=== PATIENT | male | born 1990 | race Two or more races ===

== ENCOUNTER 2023-10-25 10:56 | Inpatient (IN) | payer SELFPAY ==
[~2023-10-25] VITALS: Ht 172.7 cm; Wt 77.1 kg
[2023-10-25 11:39] LABS: CALCIUM, SERUM 7.7 mg/dL (8.5-10.1); CREATININE 0.8 mg/dL (0.6-1.3); POTASSIUM 3.9 mmol/L (3.5-5.1)
[2023-10-25 11:43] LABS: INR 1.79 (0.91-1.10); PARTIAL THROMBOPLASTIN TIME 31.8 SEC (24.3-34.3); PROTHROMBIN TIME 17.9 SECS (9.2-11.1)
[2023-10-25 11:44] LABS: BILIRUBIN,DIRECT 1.3 mg/dL (0.0-0.2); BILIRUBIN,TOTAL 2.7 mg/dL (0.2-1.0); TOTAL PROTEIN, SERUM 5.9 g/dL (6.4-8.2)
[2023-10-25 11:45] LABS: BASOPHILS % (AUTO) 0.2 % (0.0-2.0); EOSINOPHILS # (AUTO) 0.1 K/uL (0.0-0.7); HEMATOCRIT 32 % (39-51); HEMOGLOBIN 10.9 g/dL (13.5-17.5); LYMPHOCYTES # (AUTO) 0.5 K/uL (0.8-4.8); MEAN CORPUSCULAR HEMOGLOBIN 26 PG (26.0-33.0); MEAN CORPUSCULAR HGB CONC 34 g/dl (31.0-36.0); MEAN CORPUSCULAR VOLUME 77 fL (80-96); MONOCYTES # (AUTO) 0.3 K/uL (0.1-1.30); MONOCYTES % (AUTO) 13.2 % (2.0-12.0); NEUTROPHILS # (AUTO) 1.3 K/uL (1.8-8.9); NEUTROPHILS % (AUTO) 59.6 % (43.0-81.0); RED BLOOD CELL COUNT(AUTO) 4.21 MIL/uL (4.5-6.0); RED CELL DISTRIBUTION WIDTH 21.3 % (11.5-15.0); WHITE BLOOD COUNT (AUTO) 2.2 K/uL (4.3-11.0)
[2023-10-25 12:06] LABS: PLATELET COUNT (AUTO) 22 K/uL (150-450)
[2023-10-25] MEDS ORDERED: ALBUMIN 25% 12.5 GM/50 ML BOTTLE IV STA (12:35)
[2023-10-25] MEDS: ALBUMIN 25% 25 GM in PREMIX 1 EA IV STA (12:55)
[2023-10-25] MEDS ORDERED: ALBUMIN 25% 25 GM in PREMIX 1 EA IV ONE (13:00)
[2023-10-25] MEDS: LACTULOSE 10 G/15 ML UDC (PYXIS) PO ONE (13:00)
[2023-10-25] MEDS ORDERED: ALBUMIN 5% 25 GM in PREMIX 1 EA IV ONE (13:00)
[2023-10-25] MEDS ORDERED: ALBUMIN 25% 12.5 GM/50 ML BOTTLE IV ONE (13:00)
[2023-10-25] MEDS ORDERED: LACTULOSE 10 G/15 ML UDC (PYXIS) ONE ×2 (13:19→19:46)
[2023-10-25] MEDS: CEFTRIAXONE 2 G in IV D5W 100 ML IV SCH (15:00)
[2023-10-25] MEDS ORDERED: MAGNESIUM HYDROXIDE 30 ML UDC PO PRN (18:00)
[2023-10-25] MEDS ORDERED: Z GUARD REMEDY 4 OZ OINT TP PRN (18:00)
[2023-10-25] MEDS ORDERED: ONDANSETRON HCL/PF 4 MG/2 ML VIAL IVP PRN (18:00)
[2023-10-25] MEDS ORDERED: HYDROCODONE/APAP 5/325MG TABLET PO PRN (18:00)
[2023-10-25] MEDS ORDERED: PHYTONADIONE INJ 10 MG/1 ML AMPUL ONE (19:46)
[2023-10-25] MEDS: PHYTONADIONE INJ 10 MG/1 ML AMPUL SQ ONE (19:52)
[2023-10-25] MEDS: LACTULOSE 10 G/15 ML UDC (PYXIS) PO SCH (19:52)
[2023-10-25 21:31] LABS: ANISOCYTOSIS 1+; EOSINOPHILS % (MANUAL) 7 % (0-4); LYMPHOCYTES % (MANUAL) 26 % (16-48); MONOCYTES % (MANUAL) 11 % (0-11.0); NEUTROPHILS % (MANUAL) 56 (42-76); OVALOCYTES 1+; PLATELET ESTIMATE DECREASED; TARGET CELLS 1+
[2023-10-26] VITALS (12 sets, daily range): BP systolic 119–134; BP diastolic 74–85; TEMP 97.5–98.2; O2SAT 100
[2023-10-26] MEDS ORDERED: PHYTONADIONE 5 MG TABLET PO ONE (07:00)
[2023-10-26 07:17] LABS: BASOPHILS % (AUTO) 0.2 % (0.0-2.0); EOSINOPHILS # (AUTO) 0.1 K/uL (0.0-0.7); EOSINOPHILS % (AUTO) 6.7 % (0.0-6.0); HEMATOCRIT 30 % (39-51); HEMOGLOBIN 10.1 g/dL (13.5-17.5); LYMPHOCYTES # (AUTO) 0.2 K/uL (0.8-4.8); LYMPHOCYTES % (AUTO) 16.8 % (20.0-44.0); MEAN CORPUSCULAR HEMOGLOBIN 26 PG (26.0-33.0); MEAN CORPUSCULAR HGB CONC 34 g/dl (31.0-36.0); MEAN CORPUSCULAR VOLUME 77 fL (80-96); MONOCYTES # (AUTO) 0.2 K/uL (0.1-1.30); MONOCYTES % (AUTO) 15.8 % (2.0-12.0); NEUTROPHILS # (AUTO) 0.9 K/uL (1.8-8.9); NEUTROPHILS % (AUTO) 60.5 % (43.0-81.0); RED BLOOD CELL COUNT(AUTO) 3.85 MIL/uL (4.5-6.0); RED CELL DISTRIBUTION WIDTH 21.9 % (11.5-15.0)
[2023-10-26 07:27] LABS: INR 1.78 (0.91-1.10); PROTHROMBIN TIME 18.2 SECS (9.2-11.1)
[2023-10-26 07:28] LABS: PLATELET COUNT (AUTO) 19 K/uL (150-450); WHITE BLOOD COUNT (AUTO) 1.4 K/uL (4.3-11.0)
[2023-10-26] MEDS: PANTOPRAZOLE 40 MG TABLET.DR PO SCH (08:02)
[2023-10-26 08:03] LABS: CALCIUM, SERUM 7.8 mg/dL (8.5-10.1); CREATININE 0.7 mg/dL (0.6-1.3); PHOSPHORUS 3.2 mg/dL (2.5-4.9); POTASSIUM 3.6 mmol/L (3.5-5.1)
[2023-10-26 08:18] LABS: BASOPHILS % (MANUAL) 0 % (0.0-2.0); EOSINOPHILS % (MANUAL) 6 % (0-4); LYMPHOCYTES % (MANUAL) 14 % (16-48); MONOCYTES % (MANUAL) 15 % (0-11.0); NEUTROPHILS % (MANUAL) 65 (42-76)
[2023-10-26 08:19] LABS: ANISOCYTOSIS 1+; PLATELET ESTIMATE DECREASED
[2023-10-26] MEDS: SPIRONOLACTONE 25 MG TABLET PO SCH (08:29)
[2023-10-26] MEDS: FUROSEMIDE 40 MG TABLET PO SCH (08:30)
[2023-10-26 09:03] LABS: THYROID STIMULATING HORMONE 2.05 uIU/mL (0.358-3.74)
[2023-10-26] MEDS: ACETAMINOPHEN 325 MG TABLET PO PRN (17:35)
[2023-10-27 07:30] VITALS: BP 126/82; TEMP 98.2; O2SAT 100
[2023-10-27 08:04] LABS: BASOPHILS % (AUTO) 0.3 % (0.0-2.0); EOSINOPHILS # (AUTO) 0.1 K/uL (0.0-0.7); EOSINOPHILS % (AUTO) 7.1 % (0.0-6.0); HEMATOCRIT 32 % (39-51); HEMOGLOBIN 10.7 g/dL (13.5-17.5); LYMPHOCYTES # (AUTO) 0.3 K/uL (0.8-4.8); LYMPHOCYTES % (AUTO) 23.9 % (20.0-44.0); MEAN CORPUSCULAR HEMOGLOBIN 26 PG (26.0-33.0); MEAN CORPUSCULAR HGB CONC 34 g/dl (31.0-36.0); MEAN CORPUSCULAR VOLUME 78 fL (80-96); MONOCYTES # (AUTO) 0.2 K/uL (0.1-1.30); MONOCYTES % (AUTO) 16.2 % (2.0-12.0); NEUTROPHILS # (AUTO) 0.7 K/uL (1.8-8.9); NEUTROPHILS % (AUTO) 52.5 % (43.0-81.0); RED BLOOD CELL COUNT(AUTO) 4.09 MIL/uL (4.5-6.0); RED CELL DISTRIBUTION WIDTH 21.9 % (11.5-15.0)
[2023-10-27 08:32] LABS: BILIRUBIN,TOTAL 2.3 mg/dL (0.2-1.0); CALCIUM, SERUM 7.8 mg/dL (8.5-10.1); CREATININE 0.7 mg/dL (0.6-1.3); MAGNESIUM 2.1 mg/dL (1.8-2.4); POTASSIUM 3.9 mmol/L (3.5-5.1); TOTAL PROTEIN, SERUM 5.9 g/dL (6.4-8.2)
[2023-10-27 09:30] LABS: PLATELET COUNT (AUTO) 17 K/uL (150-450); WHITE BLOOD COUNT (AUTO) 1.4 K/uL (4.3-11.0)
[2023-10-27 11:15] LABS: ANISOCYTOSIS 1+; BASOPHILS % (MANUAL) 0 % (0.0-2.0); EOSINOPHILS % (MANUAL) 6 % (0-4); HYPOCHROMASIA 1+; LYMPHOCYTES % (MANUAL) 20 % (16-48); MONOCYTES % (MANUAL) 14 % (0-11.0); NEUTROPHILS % (MANUAL) 60 (42-76); OVALOCYTES 1+; PLATELET ESTIMATE DECREASED
[2023-10-27 16:00] VITALS: BP 122/71; TEMP 98.1; O2SAT 100
[2023-10-27 20:00] VITALS: BP 116/79; TEMP 98.1; O2SAT 100
[2023-10-28] VITALS (9 sets, daily range): BP systolic 104–131; BP diastolic 58–86; TEMP 97.8–98.6; O2SAT 99–100
[2023-10-28 07:55] LABS: BASOPHILS % (AUTO) 0.2 % (0.0-2.0); EOSINOPHILS # (AUTO) 0.1 K/uL (0.0-0.7); EOSINOPHILS % (AUTO) 6.6 % (0.0-6.0); HEMATOCRIT 30 % (39-51); HEMOGLOBIN 10.3 g/dL (13.5-17.5); LYMPHOCYTES # (AUTO) 0.3 K/uL (0.8-4.8); LYMPHOCYTES % (AUTO) 20.3 % (20.0-44.0); MEAN CORPUSCULAR HEMOGLOBIN 27 PG (26.0-33.0); MEAN CORPUSCULAR HGB CONC 34 g/dl (31.0-36.0); MEAN CORPUSCULAR VOLUME 78 fL (80-96); MONOCYTES # (AUTO) 0.2 K/uL (0.1-1.30); NEUTROPHILS # (AUTO) 0.7 K/uL (1.8-8.9); NEUTROPHILS % (AUTO) 54.9 % (43.0-81.0); RED BLOOD CELL COUNT(AUTO) 3.85 MIL/uL (4.5-6.0); RED CELL DISTRIBUTION WIDTH 21.5 % (11.5-15.0)
[2023-10-28 08:02] LABS: PLATELET COUNT (AUTO) 21 K/uL (150-450); WHITE BLOOD COUNT (AUTO) 1.4 K/uL (4.3-11.0)
[2023-10-28 08:11] LABS: CALCIUM, SERUM 7.8 mg/dL (8.5-10.1); CREATININE 0.6 mg/dL (0.6-1.3); MAGNESIUM 1.9 mg/dL (1.8-2.4); PHOSPHORUS 3.7 mg/dL (2.5-4.9); POTASSIUM 3.9 mmol/L (3.5-5.1)
[2023-10-28 09:18] LABS: BILIRUBIN,DIRECT 1.2 mg/dL (0.0-0.2); BILIRUBIN,TOTAL 2.3 mg/dL (0.2-1.0); TOTAL PROTEIN, SERUM 5.8 g/dL (6.4-8.2)
[2023-10-28 13:52] LABS: EOSINOPHILS % (MANUAL) 2 % (0-4); LYMPHOCYTES % (MANUAL) 26 % (16-48); MONOCYTES % (MANUAL) 16 % (0-11.0); NEUTROPHILS % (MANUAL) 56 (42-76); PLATELET ESTIMATE DECREASED
[2023-10-28 13:53] LABS: ANISOCYTOSIS 1+; HYPOCHROMASIA 1+
[2023-10-28 13:54] LABS: OVALOCYTES 1+
[2023-10-28 21:18] LABS: PROTEIN, BODY FLUID 0.5 G/DL
[2023-10-28 21:54] LABS: APPEARANCE,SPUN,BODY FLUID CLEAR (CLEAR); TOTAL VOLUME,BODY FLUID 5760 mL
[2023-10-29 03:10] LABS: WBC, BODY FLUID 82 /cu. mm. (0-200)
[2023-10-29 03:21] LABS: MACROPHAGES, BODY FLUID 44; POLYNUCLEAR, BODY FLUID 1 % (0-25)
[2023-10-29 07:21] LABS: BASOPHILS % (AUTO) 0.3 % (0.0-2.0); EOSINOPHILS # (AUTO) 0.1 K/uL (0.0-0.7); EOSINOPHILS % (AUTO) 6.2 % (0.0-6.0); HEMATOCRIT 30 % (39-51); HEMOGLOBIN 10.1 g/dL (13.5-17.5); LYMPHOCYTES # (AUTO) 0.3 K/uL (0.8-4.8); LYMPHOCYTES % (AUTO) 22.6 % (20.0-44.0); MEAN CORPUSCULAR HEMOGLOBIN 26 PG (26.0-33.0); MEAN CORPUSCULAR HGB CONC 34 g/dl (31.0-36.0); MEAN CORPUSCULAR VOLUME 78 fL (80-96); MONOCYTES # (AUTO) 0.2 K/uL (0.1-1.30); MONOCYTES % (AUTO) 12.4 % (2.0-12.0); NEUTROPHILS # (AUTO) 0.8 K/uL (1.8-8.9); NEUTROPHILS % (AUTO) 58.5 % (43.0-81.0); RED BLOOD CELL COUNT(AUTO) 3.85 MIL/uL (4.5-6.0); RED CELL DISTRIBUTION WIDTH 21.6 % (11.5-15.0)
[2023-10-29 07:23] LABS: CALCIUM, SERUM 7.2 mg/dL (8.5-10.1); CREATININE 0.7 mg/dL (0.6-1.3); MAGNESIUM 1.8 mg/dL (1.8-2.4); PHOSPHORUS 3.7 mg/dL (2.5-4.9); POTASSIUM 3.8 mmol/L (3.5-5.1)
[2023-10-29 07:39] LABS: PLATELET COUNT (AUTO) 21 K/uL (150-450); WHITE BLOOD COUNT (AUTO) 1.5 K/uL (4.3-11.0)
[2023-10-29 07:40] VITALS: BP 116/78; TEMP 98.2; O2SAT 100
[2023-10-29 08:00] VITALS: BP 115/73; TEMP 98.2; O2SAT 99
[2023-10-29 10:21] LABS: ANISOCYTOSIS 1+; BAND % (MANUAL) 3 % (0.0-5.0); BASOPHILS % (MANUAL) 0 % (0.0-2.0); EOSINOPHILS % (MANUAL) 6 % (0-4); LYMPHOCYTES % (MANUAL) 18 % (16-48); MONOCYTES % (MANUAL) 11 % (0-11.0); NEUTROPHILS % (MANUAL) 62 (42-76); OVALOCYTES 1+; PLATELET ESTIMATE DECREASED
[2023-10-29 10:22] LABS: HYPOCHROMASIA 1+
[2023-10-29 13:14] LABS: HIV-1 p24 ANTIGEN NON REACTIVE (NONREACTIVE); HIV-1/2 ANTIBODY NON REACTIVE (NONREACTIVE)
[2023-10-29 13:23] LABS: RHEUMATOID FACTOR SCREEN NEGATIVE (NEGATIVE)
[2023-10-29 13:36] LABS: C-REACTIVE PROTEIN 0.32 mg/dL (0.0-0.30)
[2023-10-29 16:00] VITALS: BP 120/64; TEMP 98.3; O2SAT 100
[2023-10-29 18:00] VITALS: BP 120/64; TEMP 98.3; O2SAT 100
[2023-10-29 20:00] VITALS: BP 116/78; TEMP 98.2; O2SAT 100
[2023-10-30 06:51] LABS: BASOPHILS % (AUTO) 0.1 % (0.0-2.0); EOSINOPHILS # (AUTO) 0.1 K/uL (0.0-0.7); EOSINOPHILS % (AUTO) 5.6 % (0.0-6.0); HEMATOCRIT 30 % (39-51); HEMOGLOBIN 10.2 g/dL (13.5-17.5); LYMPHOCYTES # (AUTO) 0.5 K/uL (0.8-4.8); LYMPHOCYTES % (AUTO) 23.7 % (20.0-44.0); MEAN CORPUSCULAR HEMOGLOBIN 27 PG (26.0-33.0); MEAN CORPUSCULAR HGB CONC 34 g/dl (31.0-36.0); MEAN CORPUSCULAR VOLUME 78 fL (80-96); MONOCYTES # (AUTO) 0.2 K/uL (0.1-1.30); MONOCYTES % (AUTO) 11.1 % (2.0-12.0); NEUTROPHILS # (AUTO) 1.1 K/uL (1.8-8.9); NEUTROPHILS % (AUTO) 59.5 % (43.0-81.0); RED BLOOD CELL COUNT(AUTO) 3.82 MIL/uL (4.5-6.0); RED CELL DISTRIBUTION WIDTH 21.5 % (11.5-15.0)
[2023-10-30 06:53] LABS: PLATELET COUNT (AUTO) 23 K/uL (150-450); WHITE BLOOD COUNT (AUTO) 1.9 K/uL (4.3-11.0)
[2023-10-30 07:06] LABS: CALCIUM, SERUM 7.5 mg/dL (8.5-10.1); CREATININE 0.6 mg/dL (0.6-1.3); POTASSIUM 3.8 mmol/L (3.5-5.1)
[2023-10-30 08:00] VITALS: BP 116/74; TEMP 98.4; O2SAT 100
[2023-10-30 09:08] LABS: HEPATITIS B SURFACE AB Non Reactive (.); IMMUNOGLOBULIN A, SERUM 246 mg/dL (90-386); IMMUNOGLOBULIN G, SERUM 2217 mg/dL (603-1613); IMMUNOGLOBULIN M, SERUM 136 mg/dL (20-172)
[2023-10-30 10:10] LABS: *ANA ANTI-CENTROMERE B AB <0.2 AI (0.0-0.9); *ANA ANTI-DNA(DS) AB, QN 2 IU/mL (0-9); *ANA ANTI-JO-1 <0.2 AI (0.0-0.9); *ANA ANTICHROMATIN ANTIBODY <0.2 AI (0.0-0.9); *ANA RNP ANTIBODIES 0.2 AI (0.0-0.9); *ANA SJOGREN'S ANTI-SS-A <0.2 AI (0.0-0.9); *ANA SJOGREN'S ANTI-SS-B <0.2 AI (0.0-0.9); *ANAANTI-SCLERODERMA-70 AB <0.2 AI (0.0-0.9); *ANASMITH AB <0.2 AI (0.0-0.9)
[2023-10-30 11:50] LABS: ANISOCYTOSIS 1+; BAND % (MANUAL) 5 % (0.0-5.0); BASOPHILS % (MANUAL) 0 % (0.0-2.0); EOSINOPHILS % (MANUAL) 2 % (0-4); HYPOCHROMASIA 1+; LYMPHOCYTES % (MANUAL) 20 % (16-48); MONOCYTES % (MANUAL) 9 % (0-11.0); NEUTROPHILS % (MANUAL) 64 (42-76); OVALOCYTES 1+; PLATELET ESTIMATE DECREASED
[2023-10-30 14:12] LABS: *SPE A/G RATIO 0.8 (0.7-1.7); *SPE ALBUMIN 2.4 g/dL (2.9-4.4); *SPE ALPHA-1-GLOBULIN 0.2 g/dL (0.0-0.4); *SPE ALPHA-2-GLOBULIN 0.3 g/dL (0.4-1.0); *SPE BETA GLOBULIN 0.6 g/dL (0.7-1.3); *SPE M-SPIKE Not Observed g/dL (Not Observed); *SPE PROTEIN TOTAL 5.4 g/dL (6.0-8.5)
[2023-10-30 16:00] VITALS: BP 113/82; TEMP 98.6; O2SAT 100
[2023-10-30 20:18] VITALS: BP 119/76; TEMP 98; O2SAT 100
[2023-10-30 21:03] VITALS: BP 119/76; TEMP 98; O2SAT 100
[2023-10-31 07:33] LABS: BASOPHILS % (AUTO) 0.1 % (0.0-2.0); EOSINOPHILS % (AUTO) 0.6 % (0.0-6.0); HEMATOCRIT 33 % (39-51); HEMOGLOBIN 11.4 g/dL (13.5-17.5); LYMPHOCYTES # (AUTO) 0.4 K/uL (0.8-4.8); LYMPHOCYTES % (AUTO) 6.5 % (20.0-44.0); MEAN CORPUSCULAR HEMOGLOBIN 27 PG (26.0-33.0); MEAN CORPUSCULAR HGB CONC 35 g/dl (31.0-36.0); MEAN CORPUSCULAR VOLUME 77 fL (80-96); MONOCYTES # (AUTO) 0.4 K/uL (0.1-1.30); MONOCYTES % (AUTO) 5.7 % (2.0-12.0); NEUTROPHILS # (AUTO) 5.5 K/uL (1.8-8.9); NEUTROPHILS % (AUTO) 87.1 % (43.0-81.0); RED BLOOD CELL COUNT(AUTO) 4.27 MIL/uL (4.5-6.0); RED CELL DISTRIBUTION WIDTH 21.2 % (11.5-15.0); WHITE BLOOD COUNT (AUTO) 6.4 K/uL (4.3-11.0)
[2023-10-31 07:45] LABS: PLATELET COUNT (AUTO) 18 K/uL (150-450)
[2023-10-31 07:48] LABS: BILIRUBIN,TOTAL 2.3 mg/dL (0.2-1.0); CALCIUM, SERUM 7.7 mg/dL (8.5-10.1); MAGNESIUM 1.6 mg/dL (1.8-2.4); PHOSPHORUS 2.8 mg/dL (2.5-4.9); POTASSIUM 4.3 mmol/L (3.5-5.1); TOTAL PROTEIN, SERUM 6.1 g/dL (6.4-8.2)
[2023-10-31 08:00] VITALS: BP 120/85; TEMP 98.4; O2SAT 98
[2023-10-31 08:00] LABS: CREATININE 0.8 mg/dL (0.6-1.3)
[2023-10-31] MEDS: MAGNESIUM OXIDE 400 MG TABLET PO ONE (09:18)
[2023-10-31 10:38] LABS: ANISOCYTOSIS 1+; BAND % (MANUAL) 2 % (0.0-5.0); BASOPHILS % (MANUAL) 0 % (0.0-2.0); EOSINOPHILS % (MANUAL) 0 % (0-4); LYMPHOCYTES % (MANUAL) 8 % (16-48); MONOCYTES % (MANUAL) 5 % (0-11.0); NEUTROPHILS % (MANUAL) 85 (42-76); PLATELET ESTIMATE DECREASED
[2023-10-31] MEDS ORDERED: FURO40TA5 PO (11:39)
[2023-10-31] MEDS ORDERED: SPIR25TA6 PO (11:39)
[2023-10-31] MEDS ORDERED: LACT10SO58 PO (11:39)
[2023-10-31 14:09] LABS: FOLIC ACID 7.2 ng/mL (>3.0)
[2023-10-31 16:00] VITALS: BP 123/65; TEMP 98.2; O2SAT 99
[2023-11-01 02:11] LABS: FREE KAPPA LT CHAINS SERUM 44.9 mg/L (3.3-19.4); FREE LAMBDA LT CHAIN SERUM 32.3 mg/L (5.7-26.3); KAPPA/LAMBDA RATIO SERUM 1.39 (0.26-1.65)
== END 2023-10-31 17:00 | disposition home or self-care (01) | DRG 433 ==
LOC: ER 11:05 → TRANSITION 17:31 → MED 18:05
PROVIDERS: ADMIT Nurse Practitioner Family
PROC: 30233K1 Transfusion of Nonautologous Frozen Plasma into Peripheral Vein, Percutaneous Approach (ICD-10-PCS; principal; 2023-10-26)
PROC: 30233R1 Transfusion of Nonautologous Platelets into Peripheral Vein, Percutaneous Approach (ICD-10-PCS; 2023-10-26)
PROC: 0W9G3ZZ Drainage of Peritoneal Cavity, Percutaneous Approach (ICD-10-PCS; 2023-10-28)
DX: K74.60 Unspecified cirrhosis of liver (principal); B16.9 Acute hepatitis B without delta-agent and without hepatic coma; D61.818 Other pancytopenia; E44.0 Moderate protein-calorie malnutrition; R18.8 Other ascites; E87.1 Hypo-osmolality and hyponatremia; I85.10 Secondary esophageal varices without bleeding; D68.9 Coagulation defect, unspecified; E72.4 Disorders of ornithine metabolism; E88.09 Other disorders of plasma-protein metabolism, not elsewhere classified; E87.70 Fluid overload, unspecified; D50.9 Iron deficiency anemia, unspecified; Z87.891 Personal history of nicotine dependence; D72.819 Decreased white blood cell count, unspecified; D72.821 Monocytosis (symptomatic); D69.6 Thrombocytopenia, unspecified; E80.6 Other disorders of bilirubin metabolism; R74.01 Elevation of levels of liver transaminase levels; R16.1 Splenomegaly, not elsewhere classified; Z68.25 Body mass index [BMI] 25.0-25.9, adult; Z86.19 Personal history of other infectious and parasitic diseases
CPT/HCPCS: 36415; 71045-TC; 80048-TC; 80053-TC; 80076-TC; 82140-TC; 82607-TC; 82728-TC; 82784; 83540-TC; 83615-TC; 83690-TC; 83735-TC; 84100-TC; 84155; 84165; 84439-TC; 84443-TC; 85025-TC; 85610-TC; 85730-TC; 86140-TC; 86225; 86235; 86334; 86431-TC; 86706; 86803; 86850-TC; 87081-TC; 87340; 87806; 89051-TC; A4216; A4223; G0378; J0696; J3430; J7050; J7060; P9017; P9034; P9045; P9047

== ENCOUNTER 2023-11-24 03:21 | Inpatient (IN) | payer MEDICAID ==
[2023-11-24] VITALS (9 sets, daily range): BP systolic 111–119; BP diastolic 66–85; TEMP 97.7–98.4; O2SAT 99–100
[~2023-11-24] VITALS: Ht 172.7 cm; Wt 60.6 kg
[~2023-11-24 03:21] MED LIST: FURO40TA5 PO; LACT10SO58 PO; SPIR25TA6 PO
[2023-11-24 04:50] LABS: BASOPHILS % (AUTO) 0.3 % (0.0-2.0); EOSINOPHILS # (AUTO) 0.1 K/uL (0.0-0.7); EOSINOPHILS % (AUTO) 2.9 % (0.0-6.0); HEMATOCRIT 33 % (39-51); HEMOGLOBIN 11.1 g/dL (13.5-17.5); LYMPHOCYTES # (AUTO) 0.6 K/uL (0.8-4.8); LYMPHOCYTES % (AUTO) 27.1 % (20.0-44.0); MEAN CORPUSCULAR HEMOGLOBIN 26 PG (26.0-33.0); MEAN CORPUSCULAR HGB CONC 33 g/dl (31.0-36.0); MEAN CORPUSCULAR VOLUME 78 fL (80-96); MONOCYTES # (AUTO) 0.2 K/uL (0.1-1.30); MONOCYTES % (AUTO) 9.5 % (2.0-12.0); NEUTROPHILS # (AUTO) 1.3 K/uL (1.8-8.9); NEUTROPHILS % (AUTO) 60.2 % (43.0-81.0); RED BLOOD CELL COUNT(AUTO) 4.26 MIL/uL (4.5-6.0); RED CELL DISTRIBUTION WIDTH 22.8 % (11.5-15.0); WHITE BLOOD COUNT (AUTO) 2.2 K/uL (4.3-11.0)
[2023-11-24 04:54] LABS: CALCIUM, SERUM 7.8 mg/dL (8.5-10.1); CREATININE 0.9 mg/dL (0.6-1.3); INR 2.01 (0.91-1.10); PARTIAL THROMBOPLASTIN TIME 40.9 SEC (24.3-34.3); PLATELET COUNT (AUTO) 22 K/uL (150-450); POTASSIUM 4.2 mmol/L (3.5-5.1); PROTHROMBIN TIME 20.4 SECS (9.2-11.1)
[2023-11-24 04:59] LABS: ALBUMIN 1.7 g/dL (3.4-5.0); BILIRUBIN,DIRECT 1.1 mg/dL (0.0-0.2); BILIRUBIN,TOTAL 2.5 mg/dL (0.2-1.0); TOTAL PROTEIN, SERUM 5.9 g/dL (6.4-8.2)
[2023-11-24 05:02] LABS: ANISOCYTOSIS 1+; BASOPHILS % (MANUAL) 0 % (0.0-2.0); EOSINOPHILS % (MANUAL) 2 % (0-4); LYMPHOCYTES % (MANUAL) 25 % (16-48); MONOCYTES % (MANUAL) 7 % (0-11.0); NEUTROPHILS % (MANUAL) 66 (42-76); PLATELET ESTIMATE DECREASED
[2023-11-24] MEDS ORDERED: Z GUARD REMEDY 4 OZ OINT TP PRN (06:00)
[2023-11-24] MEDS ORDERED: ONDANSETRON HCL/PF 4 MG/2 ML VIAL IVP PRN (06:00)
[2023-11-24] MEDS ORDERED: ALBUMIN 25% 12.5 GM/50 ML BOTTLE IV ONE (09:00)
[2023-11-24] MEDS: LACTULOSE 10 G/15 ML UDC (PYXIS) PO SCH (09:07)
[2023-11-24] MEDS: FUROSEMIDE 40 MG TABLET PO SCH (09:08)
[2023-11-24] MEDS: SPIRONOLACTONE 25 MG TABLET PO SCH (09:08)
[2023-11-24] MEDS: PHYTONADIONE INJ 10 MG/1 ML AMPUL SQ ONE (09:10)
[2023-11-24] MEDS: ALBUMIN 25% 12.5 GM in PREMIX 1 EA IV ONE (09:49)
[2023-11-24 15:22] LABS: BASOPHILS % (AUTO) 0.2 % (0.0-2.0); EOSINOPHILS % (AUTO) 3.5 % (0.0-6.0); HEMATOCRIT 27 % (39-51); HEMOGLOBIN 9.2 g/dL (13.5-17.5); LYMPHOCYTES # (AUTO) 0.3 K/uL (0.8-4.8); LYMPHOCYTES % (AUTO) 21.1 % (20.0-44.0); MEAN CORPUSCULAR HEMOGLOBIN 26 PG (26.0-33.0); MEAN CORPUSCULAR HGB CONC 34 g/dl (31.0-36.0); MEAN CORPUSCULAR VOLUME 77 fL (80-96); MONOCYTES # (AUTO) 0.2 K/uL (0.1-1.30); MONOCYTES % (AUTO) 12.7 % (2.0-12.0); NEUTROPHILS # (AUTO) 0.8 K/uL (1.8-8.9); NEUTROPHILS % (AUTO) 62.5 % (43.0-81.0); RED BLOOD CELL COUNT(AUTO) 3.53 MIL/uL (4.5-6.0); RED CELL DISTRIBUTION WIDTH 22.3 % (11.5-15.0)
[2023-11-24 15:33] LABS: PLATELET COUNT (AUTO) 26 K/uL (150-450); WHITE BLOOD COUNT (AUTO) 1.3 K/uL (4.3-11.0)
[2023-11-24 17:59] LABS: EOSINOPHILS % (MANUAL) 6 % (0-4); LYMPHOCYTES % (MANUAL) 18 % (16-48); MONOCYTES % (MANUAL) 8 % (0-11.0); NEUTROPHILS % (MANUAL) 68 (42-76)
[2023-11-24 18:00] LABS: ANISOCYTOSIS 1+; HYPOCHROMASIA 1+; OVALOCYTES 1+; PLATELET ESTIMATE DECREASED; ROULEAUX 1+; TARGET CELLS 2+; TEAR DROP CELLS 1+
[2023-11-25 07:30] VITALS: BP 113/68; TEMP 97.5; O2SAT 99
[2023-11-25 07:52] LABS: CALCIUM, SERUM 7.7 mg/dL (8.5-10.1); CREATININE 0.8 mg/dL (0.6-1.3); MAGNESIUM 1.6 mg/dL (1.8-2.4); PHOSPHORUS 3.8 mg/dL (2.5-4.9); POTASSIUM 3.9 mmol/L (3.5-5.1)
[2023-11-25 07:54] LABS: INR 1.95 (0.91-1.10); PROTHROMBIN TIME 19.8 SECS (9.2-11.1)
[2023-11-25 07:58] LABS: BASOPHILS % (AUTO) 0.5 % (0.0-2.0); EOSINOPHILS # (AUTO) 0.1 K/uL (0.0-0.7); EOSINOPHILS % (AUTO) 2.7 % (0.0-6.0); HEMATOCRIT 29 % (39-51); HEMOGLOBIN 9.7 g/dL (13.5-17.5); LYMPHOCYTES # (AUTO) 0.5 K/uL (0.8-4.8); LYMPHOCYTES % (AUTO) 26.7 % (20.0-44.0); MEAN CORPUSCULAR HEMOGLOBIN 26 PG (26.0-33.0); MEAN CORPUSCULAR HGB CONC 34 g/dl (31.0-36.0); MEAN CORPUSCULAR VOLUME 77 fL (80-96); MONOCYTES # (AUTO) 0.2 K/uL (0.1-1.30); MONOCYTES % (AUTO) 8.7 % (2.0-12.0); NEUTROPHILS # (AUTO) 1.2 K/uL (1.8-8.9); NEUTROPHILS % (AUTO) 61.4 % (43.0-81.0); RED BLOOD CELL COUNT(AUTO) 3.77 MIL/uL (4.5-6.0); RED CELL DISTRIBUTION WIDTH 22.2 % (11.5-15.0)
[2023-11-25 08:00] LABS: PLATELET COUNT (AUTO) 32 K/uL (150-450); WHITE BLOOD COUNT (AUTO) 1.9 K/uL (4.3-11.0)
[2023-11-25] MEDS: MAGNESIUM OXIDE 400 MG TABLET PO ONE (09:21)
[2023-11-25 09:48] LABS: ANISOCYTOSIS 1+; LYMPHOCYTES % (MANUAL) 12 % (16-48); MONOCYTES % (MANUAL) 6 % (0-11.0); NEUTROPHILS % (MANUAL) 82 (42-76); PLATELET ESTIMATE DECREASED
[2023-11-25 09:49] LABS: TARGET CELLS 1+
[2023-11-25 15:59] VITALS: BP 119/74; TEMP 98.8; O2SAT 100
[2023-11-25 20:00] VITALS: BP 113/75; TEMP 98.4; O2SAT 100
[2023-11-26 06:37] LABS: INR 2.01 (0.91-1.10); PROTHROMBIN TIME 20.4 SECS (9.2-11.1)
[2023-11-26 06:43] LABS: BASOPHILS % (AUTO) 0.2 % (0.0-2.0); HEMATOCRIT 28 % (39-51); HEMOGLOBIN 9.6 g/dL (13.5-17.5); LYMPHOCYTES # (AUTO) 0.3 K/uL (0.8-4.8); LYMPHOCYTES % (AUTO) 22.2 % (20.0-44.0); MEAN CORPUSCULAR HEMOGLOBIN 26 PG (26.0-33.0); MEAN CORPUSCULAR HGB CONC 35 g/dl (31.0-36.0); MEAN CORPUSCULAR VOLUME 76 fL (80-96); MONOCYTES # (AUTO) 0.2 K/uL (0.1-1.30); MONOCYTES % (AUTO) 12.4 % (2.0-12.0); NEUTROPHILS # (AUTO) 0.8 K/uL (1.8-8.9); NEUTROPHILS % (AUTO) 62.2 % (43.0-81.0); RED BLOOD CELL COUNT(AUTO) 3.65 MIL/uL (4.5-6.0); RED CELL DISTRIBUTION WIDTH 21.8 % (11.5-15.0)
[2023-11-26 06:54] LABS: PLATELET COUNT (AUTO) 21 K/uL (150-450); WHITE BLOOD COUNT (AUTO) 1.3 K/uL (4.3-11.0)
[2023-11-26 06:57] LABS: CALCIUM, SERUM 7.3 mg/dL (8.5-10.1); CREATININE 0.8 mg/dL (0.6-1.3); POTASSIUM 3.8 mmol/L (3.5-5.1)
[2023-11-26 08:00] VITALS: BP 114/64; TEMP 98.1; O2SAT 100
[2023-11-26 10:03] LABS: BASOPHILS % (MANUAL) 0 % (0.0-2.0); EOSINOPHILS % (MANUAL) 2 % (0-4); LYMPHOCYTES % (MANUAL) 19 % (16-48); MONOCYTES % (MANUAL) 6 % (0-11.0); NEUTROPHILS % (MANUAL) 73 (42-76)
[2023-11-26 10:04] LABS: ANISOCYTOSIS 2+; PLATELET ESTIMATE DECREASED; ROULEAUX 1+; TARGET CELLS 1+
[2023-11-26] MEDS: FUROSEMIDE 40 MG/4 ML VIAL IV SCH (11:44)
[2023-11-26 16:00] VITALS: BP 108/75; TEMP 98.2; O2SAT 100
[2023-11-26] MEDS ORDERED: PHYTONADIONE 10 MG in IV D5W 50 ML SQ ONE (20:00)
[2023-11-26 20:38] VITALS: BP 119/77; TEMP 98.4; O2SAT 100
[2023-11-26] MEDS: PHYTONADIONE INJ 10 MG/1 ML AMPUL SQ ONE (21:13)
[2023-11-26] MEDS: TBO-FILGRASTIM 480 MCG/0.8 ML ML SQ SCH (21:19)
[2023-11-26 22:00] VITALS: BP 108/73; TEMP 98.1
[2023-11-26 22:20] VITALS: BP 120/79; TEMP 98.1
[2023-11-26 23:35] VITALS: BP 115/62; TEMP 97.8
[2023-11-27 06:58] LABS: INR 1.96 (0.91-1.10); PROTHROMBIN TIME 19.9 SECS (9.2-11.1)
[2023-11-27 07:06] LABS: HEPATITIS A AB, IgM Negative (Negative); HEPATITIS Be AG Negative (Negative)
[2023-11-27 07:09] LABS: CALCIUM, SERUM 7.9 mg/dL (8.5-10.1); CREATININE 0.9 mg/dL (0.6-1.3); POTASSIUM 3.6 mmol/L (3.5-5.1)
[2023-11-27 07:11] LABS: BASOPHILS % (AUTO) 0.1 % (0.0-2.0); EOSINOPHILS % (AUTO) 0.8 % (0.0-6.0); HEMATOCRIT 29 % (39-51); HEMOGLOBIN 9.8 g/dL (13.5-17.5); LYMPHOCYTES # (AUTO) 0.4 K/uL (0.8-4.8); LYMPHOCYTES % (AUTO) 7.5 % (20.0-44.0); MEAN CORPUSCULAR HEMOGLOBIN 26 PG (26.0-33.0); MEAN CORPUSCULAR HGB CONC 34 g/dl (31.0-36.0); MEAN CORPUSCULAR VOLUME 77 fL (80-96); MONOCYTES # (AUTO) 0.4 K/uL (0.1-1.30); MONOCYTES % (AUTO) 7.6 % (2.0-12.0); NEUTROPHILS # (AUTO) 4.3 K/uL (1.8-8.9); RED BLOOD CELL COUNT(AUTO) 3.75 MIL/uL (4.5-6.0); RED CELL DISTRIBUTION WIDTH 22.1 % (11.5-15.0); RETICULOCYTE COUNT 1.7 % (0.6-2.5); WHITE BLOOD COUNT (AUTO) 5.1 K/uL (4.3-11.0)
[2023-11-27 07:13] LABS: C-REACTIVE PROTEIN 0.25 mg/dL (0.0-0.30)
[2023-11-27 07:32] LABS: THYROID STIMULATING HORMONE 2.35 uIU/mL (0.358-3.74)
[2023-11-27 07:57] LABS: PLATELET COUNT (AUTO) 22 K/uL (150-450)
[2023-11-27 08:00] VITALS: BP 115/84; TEMP 97.7; O2SAT 98
[2023-11-27 08:17] LABS: RHEUMATOID FACTOR SCREEN NEGATIVE (NEGATIVE)
[2023-11-27 11:46] LABS: BAND % (MANUAL) 2 % (0.0-5.0); BASOPHILS % (MANUAL) 0 % (0.0-2.0); EOSINOPHILS % (MANUAL) 0 % (0-4); LYMPHOCYTES % (MANUAL) 10 % (16-48); MONOCYTES % (MANUAL) 7 % (0-11.0); NEUTROPHILS % (MANUAL) 81 (42-76)
[2023-11-27 11:47] LABS: ANISOCYTOSIS 1+; PLATELET ESTIMATE DECREASED; TARGET CELLS 1+
[2023-11-27 15:06] LABS: HIV-1 p24 ANTIGEN NON REACTIVE (NONREACTIVE); HIV-1/2 ANTIBODY NON REACTIVE (NONREACTIVE)
[2023-11-27 15:06] LABS: HIV-1 p24 ANTIGEN NON REACTIVE (NONREACTIVE); HIV-1/2 ANTIBODY NON REACTIVE (NONREACTIVE)
[2023-11-27 15:07] LABS: *HEPATITIS B SURFACE AG CONF Positive (.)
[2023-11-27 16:00] VITALS: BP 110/68; TEMP 97.6; O2SAT 98
[2023-11-27 20:00] VITALS: BP 111/68; TEMP 98.6; O2SAT 98
[2023-11-27 20:25] VITALS: BP 111/68; TEMP 98.6; O2SAT 100
[2023-11-27] MEDS: ACETAMINOPHEN 325 MG TABLET PO PRN (22:22)
[2023-11-28] VITALS (10 sets, daily range): BP systolic 95–112; BP diastolic 54–73; TEMP 97.5–98.6; O2SAT 100
[2023-11-28 01:07] LABS: HEPATITIS B CORE AB, IgM Negative (Negative); HEPATITIS B SURFACE AB Non Reactive (.)
[2023-11-28 03:09] LABS: HEPATITIS Be AB Reactive (Negative)
[2023-11-28 05:13] LABS: FOLIC ACID 6.8 ng/mL (>3.0); HEPATITIS B SURFACE AB Non Reactive (.)
[2023-11-28 07:46] LABS: BASOPHILS % (AUTO) 0.3 % (0.0-2.0); EOSINOPHILS # (AUTO) 0.1 K/uL (0.0-0.7); EOSINOPHILS % (AUTO) 1.2 % (0.0-6.0); HEMATOCRIT 26 % (39-51); LYMPHOCYTES # (AUTO) 0.4 K/uL (0.8-4.8); LYMPHOCYTES % (AUTO) 10.2 % (20.0-44.0); MEAN CORPUSCULAR HEMOGLOBIN 26 PG (26.0-33.0); MEAN CORPUSCULAR HGB CONC 34 g/dl (31.0-36.0); MEAN CORPUSCULAR VOLUME 77 fL (80-96); MONOCYTES # (AUTO) 0.2 K/uL (0.1-1.30); MONOCYTES % (AUTO) 3.5 % (2.0-12.0); NEUTROPHILS # (AUTO) 3.7 K/uL (1.8-8.9); NEUTROPHILS % (AUTO) 84.8 % (43.0-81.0); RED BLOOD CELL COUNT(AUTO) 3.41 MIL/uL (4.5-6.0); RED CELL DISTRIBUTION WIDTH 22.4 % (11.5-15.0); WHITE BLOOD COUNT (AUTO) 4.4 K/uL (4.3-11.0)
[2023-11-28 08:04] LABS: PLATELET COUNT (AUTO) 21 K/uL (150-450)
[2023-11-28 08:12] LABS: *SPE A/G RATIO 0.7 (0.7-1.7); *SPE ALBUMIN 2.2 g/dL (2.9-4.4); *SPE ALPHA-1-GLOBULIN 0.2 g/dL (0.0-0.4); *SPE ALPHA-2-GLOBULIN 0.3 g/dL (0.4-1.0); *SPE BETA GLOBULIN 0.5 g/dL (0.7-1.3); *SPE GLOBULIN, TOTAL 3.1 g/dL (2.2-3.9); *SPE M-SPIKE Not Observed g/dL (Not Observed); *SPE PROTEIN TOTAL 5.3 g/dL (6.0-8.5); *SPEGAMMA GLOBULIN 2.1 g/dL (0.4-1.8); IMMUNOGLOBULIN A, SERUM 251 mg/dL (90-386); IMMUNOGLOBULIN G, SERUM 2131 mg/dL (603-1613); IMMUNOGLOBULIN M, SERUM 179 mg/dL (20-172)
[2023-11-28 08:21] LABS: ALBUMIN 1.5 g/dL (3.4-5.0); CALCIUM, SERUM 7.8 mg/dL (8.5-10.1); POTASSIUM 3.4 mmol/L (3.5-5.1)
[2023-11-28 10:10] LABS: *HEPATITIS B SURFACE AG CONF Positive (.)
[2023-11-28] MEDS: POTASSIUM CHLORIDE 20 MEQ TAB.PRT.SR PO ONE (10:32)
[2023-11-28 12:18] LABS: ANISOCYTOSIS 1+; BASOPHILS % (MANUAL) 0 % (0.0-2.0); EOSINOPHILS % (MANUAL) 1 % (0-4); LYMPHOCYTES % (MANUAL) 9 % (16-48); MONOCYTES % (MANUAL) 5 % (0-11.0); NEUTROPHILS % (MANUAL) 85 (42-76); PLATELET ESTIMATE DECREASED; TARGET CELLS 1+
[2023-11-28 15:06] LABS: *ANA ANTI-CENTROMERE B AB <0.2 AI (0.0-0.9); *ANA ANTI-DNA(DS) AB, QN 3 IU/mL (0-9); *ANA ANTI-JO-1 <0.2 AI (0.0-0.9); *ANA ANTICHROMATIN ANTIBODY <0.2 AI (0.0-0.9); *ANA RNP ANTIBODIES 0.2 AI (0.0-0.9); *ANA SJOGREN'S ANTI-SS-A <0.2 AI (0.0-0.9); *ANA SJOGREN'S ANTI-SS-B <0.2 AI (0.0-0.9); *ANAANTI-SCLERODERMA-70 AB <0.2 AI (0.0-0.9); *ANASMITH AB <0.2 AI (0.0-0.9); FREE KAPPA LT CHAINS SERUM 73.9 mg/L (3.3-19.4); FREE LAMBDA LT CHAIN SERUM 45.5 mg/L (5.7-26.3); KAPPA/LAMBDA RATIO SERUM 1.62 (0.26-1.65)
[2023-11-28] MEDS: FUROSEMIDE 40 MG/4 ML VIAL IV SCH (16:24)
[2023-11-29 07:43] LABS: ALBUMIN 1.7 g/dL (3.4-5.0); BILIRUBIN,TOTAL 1.8 mg/dL (0.2-1.0); CALCIUM, SERUM 7.9 mg/dL (8.5-10.1); POTASSIUM 3.9 mmol/L (3.5-5.1); TOTAL PROTEIN, SERUM 5.5 g/dL (6.4-8.2)
[2023-11-29 07:57] LABS: BASOPHILS % (AUTO) 0.3 % (0.0-2.0); EOSINOPHILS # (AUTO) 0.1 K/uL (0.0-0.7); EOSINOPHILS % (AUTO) 2.1 % (0.0-6.0); HEMATOCRIT 29 % (39-51); HEMOGLOBIN 9.7 g/dL (13.5-17.5); LYMPHOCYTES # (AUTO) 0.4 K/uL (0.8-4.8); LYMPHOCYTES % (AUTO) 12.7 % (20.0-44.0); MEAN CORPUSCULAR HEMOGLOBIN 26 PG (26.0-33.0); MEAN CORPUSCULAR HGB CONC 33 g/dl (31.0-36.0); MEAN CORPUSCULAR VOLUME 78 fL (80-96); MONOCYTES # (AUTO) 0.2 K/uL (0.1-1.30); MONOCYTES % (AUTO) 6.1 % (2.0-12.0); NEUTROPHILS # (AUTO) 2.3 K/uL (1.8-8.9); NEUTROPHILS % (AUTO) 78.8 % (43.0-81.0); RED BLOOD CELL COUNT(AUTO) 3.75 MIL/uL (4.5-6.0); RED CELL DISTRIBUTION WIDTH 22.6 % (11.5-15.0)
[2023-11-29 08:00] VITALS: BP 105/57; TEMP 98.8; O2SAT 98
[2023-11-29 08:49] LABS: PLATELET COUNT (AUTO) 17 K/uL (150-450)
[2023-11-29 10:36] LABS: ANISOCYTOSIS 2+; BASOPHILS % (MANUAL) 0 % (0.0-2.0); EOSINOPHILS % (MANUAL) 2 % (0-4); HYPOCHROMASIA 1+; LYMPHOCYTES % (MANUAL) 10 % (16-48); MONOCYTES % (MANUAL) 6 % (0-11.0); NEUTROPHILS % (MANUAL) 82 (42-76); PLATELET ESTIMATE DECREASED
[2023-11-29 10:37] LABS: TARGET CELLS 1+
[2023-11-29 16:00] VITALS: BP 120/78; TEMP 98.4; O2SAT 100
[2023-11-29 20:00] VITALS: BP 105/70; TEMP 98.2; O2SAT 100
[2023-11-29 20:55] VITALS: BP 105/70; TEMP 98.2; O2SAT 100
[2023-11-30 06:32] LABS: BASOPHILS % (AUTO) 0.4 % (0.0-2.0); EOSINOPHILS # (AUTO) 0.1 K/uL (0.0-0.7); EOSINOPHILS % (AUTO) 3.7 % (0.0-6.0); HEMATOCRIT 28 % (39-51); HEMOGLOBIN 9.5 g/dL (13.5-17.5); LYMPHOCYTES # (AUTO) 0.4 K/uL (0.8-4.8); LYMPHOCYTES % (AUTO) 19.8 % (20.0-44.0); MEAN CORPUSCULAR HEMOGLOBIN 26 PG (26.0-33.0); MEAN CORPUSCULAR HGB CONC 34 g/dl (31.0-36.0); MEAN CORPUSCULAR VOLUME 77 fL (80-96); MONOCYTES # (AUTO) 0.2 K/uL (0.1-1.30); NEUTROPHILS # (AUTO) 1.2 K/uL (1.8-8.9); NEUTROPHILS % (AUTO) 66.1 % (43.0-81.0); RED BLOOD CELL COUNT(AUTO) 3.64 MIL/uL (4.5-6.0); RED CELL DISTRIBUTION WIDTH 22.6 % (11.5-15.0)
[2023-11-30 06:47] LABS: INR 1.95 (0.91-1.10); PARTIAL THROMBOPLASTIN TIME 41.1 SEC (24.3-34.3); PROTHROMBIN TIME 19.8 SECS (9.2-11.1)
[2023-11-30 06:48] LABS: ALBUMIN 1.7 g/dL (3.4-5.0); CALCIUM, SERUM 8.1 mg/dL (8.5-10.1); POTASSIUM 4.5 mmol/L (3.5-5.1); TOTAL PROTEIN, SERUM 5.4 g/dL (6.4-8.2)
[2023-11-30 08:00] VITALS: BP 112/66; TEMP 98.4; O2SAT 100
[2023-11-30 08:28] LABS: PLATELET COUNT (AUTO) 16 K/uL (150-450); WHITE BLOOD COUNT (AUTO) 1.8 K/uL (4.3-11.0)
[2023-11-30 08:53] LABS: ANISOCYTOSIS 1+; BASOPHILS % (MANUAL) 0 % (0.0-2.0); EOSINOPHILS % (MANUAL) 4 % (0-4); HYPOCHROMASIA 1+; LYMPHOCYTES % (MANUAL) 23 % (16-48); MONOCYTES % (MANUAL) 10 % (0-11.0); NEUTROPHILS % (MANUAL) 63 (42-76); PLATELET ESTIMATE DECREASED
[2023-11-30] MEDS: diphenhydrAMINE HCL 50 MG/ML VIAL IV ONE (14:24)
[2023-11-30] MEDS: ACETAMINOPHEN 325 MG TABLET PO ONE (14:24)
[2023-11-30] MEDS: FOLIC ACID 1 MG TABLET PO SCH (14:24)
[2023-11-30] MEDS: PHYTONADIONE INJ 10 MG/1 ML AMPUL SQ ONE (14:25)
[2023-11-30 16:00] VITALS: BP 108/66; TEMP 99.1; O2SAT 100
[2023-11-30 20:00] VITALS: BP 117/81; TEMP 98.1; O2SAT 100
[2023-11-30 22:50] VITALS: BP 108/71; TEMP 97.6
[2023-11-30 23:15] VITALS: BP 106/76; TEMP 97.6
[2023-12-01] VITALS (10 sets, daily range): BP systolic 104–113; BP diastolic 63–72; TEMP 98.2–99.1; O2SAT 98–100
[2023-12-01 07:45] LABS: INR 1.78 (0.91-1.10); PARTIAL THROMBOPLASTIN TIME 38.4 SEC (24.3-34.3); PROTHROMBIN TIME 18.2 SECS (9.2-11.1)
[2023-12-01 07:52] LABS: CALCIUM, SERUM 8.2 mg/dL (8.5-10.1); CREATININE 0.9 mg/dL (0.6-1.3); POTASSIUM 4.1 mmol/L (3.5-5.1)
[2023-12-01 08:08] LABS: BASOPHILS % (AUTO) 0.4 % (0.0-2.0); EOSINOPHILS % (AUTO) 3.3 % (0.0-6.0); HEMATOCRIT 28 % (39-51); HEMOGLOBIN 9.7 g/dL (13.5-17.5); LYMPHOCYTES # (AUTO) 0.2 K/uL (0.8-4.8); LYMPHOCYTES % (AUTO) 19.9 % (20.0-44.0); MEAN CORPUSCULAR HEMOGLOBIN 27 PG (26.0-33.0); MEAN CORPUSCULAR HGB CONC 34 g/dl (31.0-36.0); MEAN CORPUSCULAR VOLUME 78 fL (80-96); MONOCYTES # (AUTO) 0.2 K/uL (0.1-1.30); MONOCYTES % (AUTO) 14.6 % (2.0-12.0); NEUTROPHILS # (AUTO) 0.8 K/uL (1.8-8.9); NEUTROPHILS % (AUTO) 61.8 % (43.0-81.0); RED BLOOD CELL COUNT(AUTO) 3.63 MIL/uL (4.5-6.0)
[2023-12-01 08:20] LABS: WHITE BLOOD COUNT (AUTO) 1.2 K/uL (4.3-11.0)
[2023-12-01 08:21] LABS: PLATELET COUNT (AUTO) 16 K/uL (150-450)
[2023-12-01 11:28] LABS: ANISOCYTOSIS 1+; BAND % (MANUAL) 3 % (0.0-5.0); BASOPHILS % (MANUAL) 0 % (0.0-2.0); EOSINOPHILS % (MANUAL) 6 % (0-4); HYPOCHROMASIA 1+; LYMPHOCYTES % (MANUAL) 19 % (16-48); MONOCYTES % (MANUAL) 10 % (0-11.0); NEUTROPHILS % (MANUAL) 62 (42-76); PLATELET ESTIMATE DECREASED; TARGET CELLS 1+
[2023-12-02] VITALS (13 sets, daily range): BP systolic 97–116; BP diastolic 57–81; TEMP 97.5–98.8; O2SAT 98–100
[2023-12-02 07:33] LABS: BASOPHILS % (AUTO) 0.3 % (0.0-2.0); EOSINOPHILS % (AUTO) 2.9 % (0.0-6.0); HEMATOCRIT 28 % (39-51); HEMOGLOBIN 9.7 g/dL (13.5-17.5); LYMPHOCYTES # (AUTO) 0.3 K/uL (0.8-4.8); LYMPHOCYTES % (AUTO) 23.8 % (20.0-44.0); MEAN CORPUSCULAR HEMOGLOBIN 27 PG (26.0-33.0); MEAN CORPUSCULAR HGB CONC 34 g/dl (31.0-36.0); MEAN CORPUSCULAR VOLUME 78 fL (80-96); MONOCYTES # (AUTO) 0.2 K/uL (0.1-1.30); MONOCYTES % (AUTO) 15.1 % (2.0-12.0); NEUTROPHILS # (AUTO) 0.7 K/uL (1.8-8.9); NEUTROPHILS % (AUTO) 57.9 % (43.0-81.0); RED BLOOD CELL COUNT(AUTO) 3.63 MIL/uL (4.5-6.0); RED CELL DISTRIBUTION WIDTH 23.5 % (11.5-15.0)
[2023-12-02 07:44] LABS: INR 1.84 (0.91-1.10); PARTIAL THROMBOPLASTIN TIME 40.9 SEC (24.3-34.3); PROTHROMBIN TIME 18.7 SECS (9.2-11.1)
[2023-12-02 07:45] LABS: CALCIUM, SERUM 7.8 mg/dL (8.5-10.1); CREATININE 0.8 mg/dL (0.6-1.3); POTASSIUM 3.8 mmol/L (3.5-5.1)
[2023-12-02 08:32] LABS: PLATELET COUNT (AUTO) 15 K/uL (150-450); WHITE BLOOD COUNT (AUTO) 1.3 K/uL (4.3-11.0)
[2023-12-02 10:00] LABS: ANISOCYTOSIS 1+; EOSINOPHILS % (MANUAL) 2 % (0-4); LYMPHOCYTES % (MANUAL) 27 % (16-48); MONOCYTES % (MANUAL) 13 % (0-11.0); NEUTROPHILS % (MANUAL) 58 (42-76); PLATELET ESTIMATE DECREASED
[2023-12-02 10:01] LABS: HYPOCHROMASIA 1+
[2023-12-02] MEDS: ACETAMINOPHEN 325 MG TABLET PO ONE (11:08)
[2023-12-02] MEDS: PHYTONADIONE INJ 10 MG/1 ML AMPUL SQ ONE (11:08)
[2023-12-02] MEDS: diphenhydrAMINE HCL 50 MG/ML VIAL IV ONE (11:08)
[2023-12-03] VITALS (16 sets, daily range): BP systolic 103–114; BP diastolic 66–74; TEMP 97.6–98.8; O2SAT 98–100
[2023-12-03 06:34] LABS: BASOPHILS % (AUTO) 0.1 % (0.0-2.0); EOSINOPHILS % (AUTO) 3.3 % (0.0-6.0); HEMATOCRIT 27 % (39-51); HEMOGLOBIN 9.3 g/dL (13.5-17.5); LYMPHOCYTES # (AUTO) 0.2 K/uL (0.8-4.8); LYMPHOCYTES % (AUTO) 25.1 % (20.0-44.0); MEAN CORPUSCULAR HEMOGLOBIN 27 PG (26.0-33.0); MEAN CORPUSCULAR HGB CONC 34 g/dl (31.0-36.0); MEAN CORPUSCULAR VOLUME 78 fL (80-96); MONOCYTES # (AUTO) 0.2 K/uL (0.1-1.30); MONOCYTES % (AUTO) 23.6 % (2.0-12.0); NEUTROPHILS # (AUTO) 0.4 K/uL (1.8-8.9); NEUTROPHILS % (AUTO) 47.9 % (43.0-81.0); RED BLOOD CELL COUNT(AUTO) 3.49 MIL/uL (4.5-6.0); RED CELL DISTRIBUTION WIDTH 23.5 % (11.5-15.0)
[2023-12-03 06:38] LABS: CALCIUM, SERUM 7.5 mg/dL (8.5-10.1); CREATININE 0.9 mg/dL (0.6-1.3); POTASSIUM 3.5 mmol/L (3.5-5.1)
[2023-12-03 06:43] LABS: INR 1.68 (0.91-1.10); PARTIAL THROMBOPLASTIN TIME 36.7 SEC (24.3-34.3); PROTHROMBIN TIME 17.2 SECS (9.2-11.1)
[2023-12-03 08:08] LABS: PLATELET COUNT (AUTO) 24 K/uL (150-450); WHITE BLOOD COUNT (AUTO) 0.9 K/uL (4.3-11.0)
[2023-12-03 08:35] LABS: ANISOCYTOSIS 1+; BASOPHILS % (MANUAL) 0 % (0.0-2.0); EOSINOPHILS % (MANUAL) 3 % (0-4); LYMPHOCYTES % (MANUAL) 24 % (16-48); MONOCYTES % (MANUAL) 25 % (0-11.0); NEUTROPHILS % (MANUAL) 48 (42-76); PLATELET ESTIMATE DECREASED
[2023-12-03 08:36] LABS: ROULEAUX 1+
[2023-12-03] MEDS: ENTECAVIR 0.5MG TABLET PO SCH (11:37)
[2023-12-03] MEDS: ACETAMINOPHEN 325 MG TABLET PO ONE (23:10)
[2023-12-03] MEDS: diphenhydrAMINE HCL 50 MG/ML VIAL ONE (23:39)
[2023-12-03] MEDS: diphenhydrAMINE HCL 50 MG/ML VIAL IV ONE (23:42)
[2023-12-04] VITALS (9 sets, daily range): BP systolic 106–114; BP diastolic 63–78; TEMP 97.7–98.8; O2SAT 100
[2023-12-04 07:08] LABS: BASOPHILS % (AUTO) 0.4 % (0.0-2.0); EOSINOPHILS % (AUTO) 3.3 % (0.0-6.0); HEMATOCRIT 27 % (39-51); HEMOGLOBIN 9.1 g/dL (13.5-17.5); LYMPHOCYTES # (AUTO) 0.3 K/uL (0.8-4.8); LYMPHOCYTES % (AUTO) 38.4 % (20.0-44.0); MEAN CORPUSCULAR HEMOGLOBIN 26 PG (26.0-33.0); MEAN CORPUSCULAR HGB CONC 34 g/dl (31.0-36.0); MEAN CORPUSCULAR VOLUME 78 fL (80-96); MONOCYTES # (AUTO) 0.2 K/uL (0.1-1.30); MONOCYTES % (AUTO) 23.4 % (2.0-12.0); NEUTROPHILS # (AUTO) 0.2 K/uL (1.8-8.9); NEUTROPHILS % (AUTO) 34.5 % (43.0-81.0); RED BLOOD CELL COUNT(AUTO) 3.46 MIL/uL (4.5-6.0); RED CELL DISTRIBUTION WIDTH 23.8 % (11.5-15.0)
[2023-12-04 07:14] LABS: INR 1.62 (0.91-1.10); PARTIAL THROMBOPLASTIN TIME 37.1 SEC (24.3-34.3); PROTHROMBIN TIME 16.6 SECS (9.2-11.1)
[2023-12-04 07:34] LABS: CALCIUM, SERUM 7.7 mg/dL (8.5-10.1); CREATININE 0.9 mg/dL (0.6-1.3); POTASSIUM 3.7 mmol/L (3.5-5.1)
[2023-12-04 07:57] LABS: PLATELET COUNT (AUTO) 17 K/uL (150-450); WHITE BLOOD COUNT (AUTO) 0.7 K/uL (4.3-11.0)
[2023-12-04 09:39] LABS: ANISOCYTOSIS 1+; BAND % (MANUAL) 2 % (0.0-5.0); BASOPHILS % (MANUAL) 0 % (0.0-2.0); EOSINOPHILS % (MANUAL) 2 % (0-4); LYMPHOCYTES % (MANUAL) 36 % (16-48); MONOCYTES % (MANUAL) 20 % (0-11.0); NEUTROPHILS % (MANUAL) 40 (42-76); PLATELET ESTIMATE DECREASED
[2023-12-05] VITALS (28 sets, daily range): BP systolic 103–126; BP diastolic 60–85; TEMP 97.3–98.6; O2SAT 98–100
[2023-12-05] MEDS: diphenhydrAMINE HCL 50 MG/ML VIAL ONE (00:13)
[2023-12-05] MEDS: ACETAMINOPHEN 325 MG TABLET PO ONE (00:15)
[2023-12-05] MEDS: diphenhydrAMINE HCL 50 MG/ML VIAL IV ONE ×4 (00:16→22:19)
[2023-12-05 06:27] LABS: BASOPHILS % (AUTO) 0.2 % (0.0-2.0); EOSINOPHILS % (AUTO) 3.2 % (0.0-6.0); HEMATOCRIT 32 % (39-51); HEMOGLOBIN 10.8 g/dL (13.5-17.5); LYMPHOCYTES # (AUTO) 0.4 K/uL (0.8-4.8); LYMPHOCYTES % (AUTO) 45.6 % (20.0-44.0); MEAN CORPUSCULAR HEMOGLOBIN 26 PG (26.0-33.0); MEAN CORPUSCULAR HGB CONC 34 g/dl (31.0-36.0); MEAN CORPUSCULAR VOLUME 78 fL (80-96); MONOCYTES # (AUTO) 0.1 K/uL (0.1-1.30); NEUTROPHILS # (AUTO) 0.4 K/uL (1.8-8.9); RED BLOOD CELL COUNT(AUTO) 4.09 MIL/uL (4.5-6.0); RED CELL DISTRIBUTION WIDTH 23.8 % (11.5-15.0)
[2023-12-05 06:44] LABS: INR 1.48 (0.91-1.10); PARTIAL THROMBOPLASTIN TIME 34.5 SEC (24.3-34.3); PROTHROMBIN TIME 15.3 SECS (9.2-11.1)
[2023-12-05 07:09] LABS: APPEARANCE,URINE CLEAR (CLEAR); BILIRUBIN,URINE NEGATIVE (NEGATIVE); BLOOD, URINE NEGATIVE Ery/uL (NEGATIVE); COLOR,URINE DARK YELLOW (YELLOW); KETONES,URINE NEGATIVE (NEGATIVE); LEUKOCYTE ESTERASE ,URINE NEGATIVE (NEGATIVE); NITRITE, URINE NEGATIVE (NEGATIVE); PH,URINE 7.5 (5.0-8.0); PROTEIN,URINE NEGATIVE (NEGATIVE); UGLUCOSE NEGATIVE (NEGATIVE); UROBILINOGEN,URINE 0.2 EU/dL (0.2)
[2023-12-05 07:12] LABS: CALCIUM, SERUM 8.5 mg/dL (8.5-10.1); CREATININE 0.9 mg/dL (0.6-1.3); POTASSIUM 4.2 mmol/L (3.5-5.1)
[2023-12-05 07:31] LABS: PLATELET COUNT (AUTO) 18 K/uL (150-450)
[2023-12-05 07:32] LABS: WHITE BLOOD COUNT (AUTO) 0.9 K/uL (4.3-11.0)
[2023-12-05 13:37] LABS: BASOPHILS % (MANUAL) 0 % (0.0-2.0); EOSINOPHILS % (MANUAL) 3 % (0-4); LYMPHOCYTES % (MANUAL) 41 % (16-48); MONOCYTES % (MANUAL) 12 % (0-11.0); NEUTROPHILS % (MANUAL) 44 (42-76); PLATELET ESTIMATE DECREASED
[2023-12-05 13:38] LABS: ANISOCYTOSIS 1+
[2023-12-05] MEDS: LIDOCAINE 1%-EPI 1:100,000 20 ML VIAL TP ONE (14:30)
[2023-12-05] MEDS ORDERED: LIDOCAINE 1%-EPI 1:100,000 20 ML VIAL TP ONE (18:30)
[2023-12-05] MEDS ORDERED: diphenhydrAMINE HCL 50 MG/ML VIAL IV ONE (18:30)
[2023-12-05] MEDS ORDERED: LIDOCAINE 1%-EPI 1:100,000 50 ML VIAL IJ ONE (18:30)
[2023-12-05] MEDS: MORPHINE SULFATE INJ 2 MG/ML DISP.SYRIN IV ONE (18:35)
[2023-12-05] MEDS: LORAZEPAM 1 MG TABLET PO ONE (18:35)
[2023-12-05] MEDS: LIDOCAINE 1%-EPI 1:100,000 20 ML VIAL IJ ONE (19:33)
[2023-12-05 20:16] LABS: BASOPHILS % (AUTO) 0.5 % (0.0-2.0); HEMATOCRIT 29 % (39-51); HEMOGLOBIN 9.9 g/dL (13.5-17.5); LYMPHOCYTES # (AUTO) 0.3 K/uL (0.8-4.8); LYMPHOCYTES % (AUTO) 27.2 % (20.0-44.0); MEAN CORPUSCULAR HEMOGLOBIN 27 PG (26.0-33.0); MEAN CORPUSCULAR HGB CONC 34 g/dl (31.0-36.0); MEAN CORPUSCULAR VOLUME 78 fL (80-96); MONOCYTES # (AUTO) 0.1 K/uL (0.1-1.30); MONOCYTES % (AUTO) 10.7 % (2.0-12.0); NEUTROPHILS # (AUTO) 0.7 K/uL (1.8-8.9); NEUTROPHILS % (AUTO) 59.6 % (43.0-81.0); RED BLOOD CELL COUNT(AUTO) 3.67 MIL/uL (4.5-6.0)
[2023-12-05 20:35] LABS: PLATELET COUNT (AUTO) 16 K/uL (150-450); WHITE BLOOD COUNT (AUTO) 1.1 K/uL (4.3-11.0)
[2023-12-05 21:46] LABS: EOSINOPHILS % (MANUAL) 4 % (0-4); LYMPHOCYTES % (MANUAL) 20 % (16-48); MONOCYTES % (MANUAL) 13 % (0-11.0); NEUTROPHILS % (MANUAL) 63 (42-76)
[2023-12-05 21:48] LABS: PLATELET ESTIMATE DECREASED
[2023-12-05 21:50] LABS: ANISOCYTOSIS 1+; OVALOCYTES 1+; TARGET CELLS 1+
[2023-12-06 00:09] VITALS: BP 109/70; TEMP 98.4
[2023-12-06 07:06] LABS: INR 1.73 (0.91-1.10); PARTIAL THROMBOPLASTIN TIME 38.7 SEC (24.3-34.3); PROTHROMBIN TIME 17.7 SECS (9.2-11.1)
[2023-12-06 07:08] LABS: BASOPHILS % (AUTO) 0.2 % (0.0-2.0); EOSINOPHILS % (AUTO) 2.1 % (0.0-6.0); HEMATOCRIT 28 % (39-51); HEMOGLOBIN 9.3 g/dL (13.5-17.5); LYMPHOCYTES # (AUTO) 0.3 K/uL (0.8-4.8); LYMPHOCYTES % (AUTO) 35.8 % (20.0-44.0); MEAN CORPUSCULAR HEMOGLOBIN 26 PG (26.0-33.0); MEAN CORPUSCULAR HGB CONC 34 g/dl (31.0-36.0); MEAN CORPUSCULAR VOLUME 78 fL (80-96); MONOCYTES # (AUTO) 0.1 K/uL (0.1-1.30); MONOCYTES % (AUTO) 15.1 % (2.0-12.0); NEUTROPHILS # (AUTO) 0.3 K/uL (1.8-8.9); NEUTROPHILS % (AUTO) 46.8 % (43.0-81.0); RED BLOOD CELL COUNT(AUTO) 3.53 MIL/uL (4.5-6.0); RED CELL DISTRIBUTION WIDTH 24.5 % (11.5-15.0)
[2023-12-06 08:00] VITALS: BP 113/77; TEMP 98.2; O2SAT 100
[2023-12-06 08:02] LABS: WHITE BLOOD COUNT (AUTO) 0.7 K/uL (4.3-11.0)
[2023-12-06 08:03] LABS: PLATELET COUNT (AUTO) 16 K/uL (150-450)
[2023-12-06 09:41] LABS: POTASSIUM 3.9 mmol/L (3.5-5.1)
[2023-12-06 11:20] LABS: NEUTROPHILS % (MANUAL) 43 (42-76)
[2023-12-06 11:21] LABS: ANISOCYTOSIS 1+; BASOPHILS % (MANUAL) 0 % (0.0-2.0); EOSINOPHILS % (MANUAL) 2 % (0-4); LYMPHOCYTES % (MANUAL) 38 % (16-48); MONOCYTES % (MANUAL) 17 % (0-11.0); PLATELET ESTIMATE DECREASED
[2023-12-06 16:00] VITALS: BP 124/78; TEMP 98.4; O2SAT 100
[2023-12-06 20:28] VITALS: BP 111/80; TEMP 98.4; O2SAT 100
[2023-12-06 20:44] VITALS: BP 111/80; TEMP 98.4; O2SAT 100
[2023-12-07 06:48] LABS: INR 1.78 (0.91-1.10); PARTIAL THROMBOPLASTIN TIME 41.3 SEC (24.3-34.3); PROTHROMBIN TIME 18.2 SECS (9.2-11.1)
[2023-12-07 07:07] LABS: BASOPHILS % (AUTO) 0.3 % (0.0-2.0); EOSINOPHILS % (AUTO) 2.9 % (0.0-6.0); HEMATOCRIT 30 % (39-51); HEMOGLOBIN 10.2 g/dL (13.5-17.5); LYMPHOCYTES # (AUTO) 0.3 K/uL (0.8-4.8); LYMPHOCYTES % (AUTO) 30.1 % (20.0-44.0); MEAN CORPUSCULAR HEMOGLOBIN 27 PG (26.0-33.0); MEAN CORPUSCULAR HGB CONC 35 g/dl (31.0-36.0); MEAN CORPUSCULAR VOLUME 78 fL (80-96); MONOCYTES # (AUTO) 0.1 K/uL (0.1-1.30); MONOCYTES % (AUTO) 14.3 % (2.0-12.0); NEUTROPHILS # (AUTO) 0.5 K/uL (1.8-8.9); NEUTROPHILS % (AUTO) 52.4 % (43.0-81.0); RED BLOOD CELL COUNT(AUTO) 3.77 MIL/uL (4.5-6.0); RED CELL DISTRIBUTION WIDTH 23.7 % (11.5-15.0)
[2023-12-07 07:18] LABS: PLATELET COUNT (AUTO) 14 K/uL (150-450); WHITE BLOOD COUNT (AUTO) 0.9 K/uL (4.3-11.0)
[2023-12-07 07:39] LABS: CALCIUM, SERUM 8.2 mg/dL (8.5-10.1); CREATININE 1.1 mg/dL (0.6-1.3); POTASSIUM 5.1 mmol/L (3.5-5.1)
[2023-12-07 08:30] VITALS: BP 118/80; TEMP 98.4; O2SAT 97
[2023-12-07 11:22] LABS: BASOPHILS % (MANUAL) 0 % (0.0-2.0); EOSINOPHILS % (MANUAL) 3 % (0-4); LYMPHOCYTES % (MANUAL) 32 % (16-48); MONOCYTES % (MANUAL) 14 % (0-11.0); NEUTROPHILS % (MANUAL) 51 (42-76)
[2023-12-07 11:23] LABS: ANISOCYTOSIS 1+; HYPOCHROMASIA FEW; PLATELET ESTIMATE DECREASED
[2023-12-07] MEDS: PROSOURCE / PROSTAT (PYXIS) 30 ML UDC PO SCH (12:43)
[2023-12-07 16:10] VITALS: BP 114/76; TEMP 98.2; O2SAT 99
[2023-12-07 20:00] VITALS: BP 114/81; TEMP 98.2; O2SAT 99
[2023-12-08 08:00] VITALS: BP 107/69; TEMP 98.4; O2SAT 96
[2023-12-08] MEDS ORDERED: Magnesium 1GM/D5W 100ML PREMIX PIGGYBACK IV ONE (09:00)
[2023-12-08] MEDS: Magnesium 1GM/D5W 100ML PREMIX 100 ML IV SCH (10:01)
[2023-12-08 16:00] VITALS: BP 104/67; TEMP 98.9; O2SAT 99
[2023-12-08 20:00] VITALS: BP_SYST 110; BP_DIAS 71; BP_DIAS 75; TEMP 97.7; O2SAT 100
[2023-12-09 07:30] VITALS: BP 124/80; TEMP 98.2; O2SAT 100
[2023-12-09 12:33] LABS: BASOPHILS % (AUTO) 0.1 % (0.0-2.0); EOSINOPHILS % (AUTO) 3.8 % (0.0-6.0); HEMATOCRIT 37 % (39-51); HEMOGLOBIN 12.7 g/dL (13.5-17.5); LYMPHOCYTES # (AUTO) 0.3 K/uL (0.8-4.8); LYMPHOCYTES % (AUTO) 25.5 % (20.0-44.0); MEAN CORPUSCULAR HEMOGLOBIN 27 PG (26.0-33.0); MEAN CORPUSCULAR HGB CONC 35 g/dl (31.0-36.0); MEAN CORPUSCULAR VOLUME 78 fL (80-96); MONOCYTES # (AUTO) 0.2 K/uL (0.1-1.30); MONOCYTES % (AUTO) 16.4 % (2.0-12.0); NEUTROPHILS # (AUTO) 0.7 K/uL (1.8-8.9); NEUTROPHILS % (AUTO) 54.2 % (43.0-81.0); RED BLOOD CELL COUNT(AUTO) 4.74 MIL/uL (4.5-6.0); RED CELL DISTRIBUTION WIDTH 24.9 % (11.5-15.0)
[2023-12-09 12:35] LABS: PLATELET COUNT (AUTO) 15 K/uL (150-450); WHITE BLOOD COUNT (AUTO) 1.2 K/uL (4.3-11.0)
[2023-12-09 14:14] LABS: ANISOCYTOSIS 2+; EOSINOPHILS % (MANUAL) 1 % (0-4); LYMPHOCYTES % (MANUAL) 28 % (16-48); MONOCYTES % (MANUAL) 8 % (0-11.0); NEUTROPHILS % (MANUAL) 63 (42-76); PLATELET ESTIMATE DECREASED
[2023-12-09 16:00] VITALS: BP 100/69; TEMP 97.5; O2SAT 100
[2023-12-09 20:00] VITALS: BP 118/87; TEMP 98.4; O2SAT 100
[2023-12-10] VITALS (7 sets, daily range): BP systolic 112–115; BP diastolic 74–81; TEMP 97.7–98.8; O2SAT 99–100
[2023-12-10] MEDS ORDERED: LACTULOSE 10 G/15 ML UDC (PYXIS) ONE ×2 (23:19→23:20)
[2023-12-11 00:15] VITALS: BP 110/76; TEMP 98.1
[2023-12-11 01:00] VITALS: BP 116/76; TEMP 98.1
[2023-12-11 06:04] LABS: HEMATOCRIT 33 % (39-51); LYMPHOCYTES # (AUTO) 0.5 K/uL (0.8-4.8)
[2023-12-11 06:39] LABS: CALCIUM, SERUM 8.4 mg/dL (8.5-10.1); CREATININE 1.1 mg/dL (0.6-1.3); POTASSIUM 4.6 mmol/L (3.5-5.1)
[2023-12-11 06:42] LABS: BASOPHILS % (AUTO) 0.2 % (0.0-2.0); EOSINOPHILS % (AUTO) 2.4 % (0.0-6.0); HEMOGLOBIN 11.4 g/dL (13.5-17.5); LYMPHOCYTES % (AUTO) 35.9 % (20.0-44.0); MEAN CORPUSCULAR HEMOGLOBIN 26 PG (26.0-33.0); MEAN CORPUSCULAR HGB CONC 34 g/dl (31.0-36.0); MEAN CORPUSCULAR VOLUME 77 fL (80-96); MONOCYTES # (AUTO) 0.3 K/uL (0.1-1.30); MONOCYTES % (AUTO) 17.1 % (2.0-12.0); NEUTROPHILS # (AUTO) 0.7 K/uL (1.8-8.9); NEUTROPHILS % (AUTO) 44.4 % (43.0-81.0); RED BLOOD CELL COUNT(AUTO) 4.32 MIL/uL (4.5-6.0); RED CELL DISTRIBUTION WIDTH 23.9 % (11.5-15.0)
[2023-12-11 07:01] LABS: PLATELET COUNT (AUTO) 19 K/uL (150-450); WHITE BLOOD COUNT (AUTO) 1.5 K/uL (4.3-11.0)
[2023-12-11 08:00] VITALS: BP 118/76; TEMP 98.2; O2SAT 100
[2023-12-11 08:52] LABS: BASOPHILS % (MANUAL) 0 % (0.0-2.0); EOSINOPHILS % (MANUAL) 2 % (0-4); LYMPHOCYTES % (MANUAL) 37 % (16-48); MONOCYTES % (MANUAL) 16 % (0-11.0); NEUTROPHILS % (MANUAL) 45 (42-76); PLATELET ESTIMATE DECREASED
[2023-12-11 08:53] LABS: ANISOCYTOSIS 2+
[2023-12-11] MEDS ORDERED: SPIR100T5 PO (10:24)
[2023-12-11] MEDS ORDERED: FURO-144 PO (10:24)
[2023-12-11] MEDS ORDERED: LACT10SO58 PO (10:24)
[2023-12-11] MEDS ORDERED: ENTE0.5T11 PO (10:24)
[2023-12-11 16:00] VITALS: BP 118/83; TEMP 98.2; O2SAT 99
== END 2023-12-11 18:01 | disposition home or self-care (01) ==
LOC: ER 03:25 → TELE 07:56 → MED 15:06
PROVIDERS: ADMIT Internal Medicine; ATTEND Nurse Practitioner Acute Care
PROC: 30233K1 Transfusion of Nonautologous Frozen Plasma into Peripheral Vein, Percutaneous Approach (ICD-10-PCS; principal; 2023-11-24)
PROC: 30233R1 Transfusion of Nonautologous Platelets into Peripheral Vein, Percutaneous Approach (ICD-10-PCS; 2023-11-24)
PROC: 079T3ZX Drainage of Bone Marrow, Percutaneous Approach, Diagnostic (ICD-10-PCS; 2023-12-05)
DX: K74.69 Other cirrhosis of liver (principal); D61.818 Other pancytopenia; D69.6 Thrombocytopenia, unspecified; E72.4 Disorders of ornithine metabolism; E44.0 Moderate protein-calorie malnutrition; E87.1 Hypo-osmolality and hyponatremia; D70.9 Neutropenia, unspecified; B18.1 Chronic viral hepatitis B without delta-agent; I85.10 Secondary esophageal varices without bleeding; R18.8 Other ascites; E88.09 Other disorders of plasma-protein metabolism, not elsewhere classified; I10 Essential (primary) hypertension; Z87.891 Personal history of nicotine dependence; D50.9 Iron deficiency anemia, unspecified; E87.70 Fluid overload, unspecified; Z68.24 Body mass index [BMI] 24.0-24.9, adult; D47.2 Monoclonal gammopathy; E83.42 Hypomagnesemia; R16.1 Splenomegaly, not elsewhere classified; R50.81 Fever presenting with conditions classified elsewhere
CPT/HCPCS: 36415; 71045-TC; 76700-TC; 80048-TC; 80053-TC; 80076-TC; 82140-TC; 82232; 82607-TC; 82728-TC; 82784; 83540-TC; 83605-TC; 83735-TC; 84100-TC; 84155; 84165; 84443-TC; 85025-TC; 85045-TC; 85610-TC; 85730-TC; 86140-TC; 86225; 86235; 86334; 86431-TC; 86705; 86706; 86707; 86709; 86803; 86850-TC; 87040-TC; 87340; 87350; 87517; 87806; 98960; A4216; A4223; G0378; J1200; J1447; J1940; J2270; J3430; J3475; J3490; J7030; J7040; J7050; P9017; P9034; P9047